=== PATIENT | female | born 1945 | race Caucasian/White ===

== ENCOUNTER 2017-10-17 08:29 | Outpatient (CLI) | payer MEDICARE ==
--- NOTE | 2017-10-17 10:00 | RAD ---
FIVE VIEWS CERVICAL SPINE: Technique: AP, lateral, open mouth odontoid, flexion and extension views cervical spine. FINDINGS: Images demonstrate loss of the normal lordotic curvature of the cervical spine. There is disc space h eight loss with anterior and posterior osteophytes at C4-5, C5-6 and C6-7. This is compatible with ch anges of spondylosis. There is mild retrolisthesis of C5 on C6. IMPRESSION: Retrolisthesis of C5 on C6 with multilevel mid lower cervical changes of spondylosis. POS: NICKIC
== END 2017-10-17 08:30 | disposition home or self-care (01) ==
LOC: TBSIIMAG 08:29
PROVIDERS: ATTEND Surgery
DX: M50.30 Other cervical disc degeneration, unspecified cervical region (principal); M43.12 Spondylolisthesis, cervical region; M47.892 Other spondylosis, cervical region
CPT/HCPCS: 72040